=== PATIENT | female | born 1955 | race American Indian/Alaskan Native ===

== ENCOUNTER 2017-09-03 09:38 | Emergency (ER) | payer MEDICAID ==
[2017-09-03 09:39] VITALS: BMI 42.9
[2017-09-03 09:48] VITALS: TEMP 98.9
--- NOTE | 2017-09-03 10:21 | C.PDOC ---
History Of Present Illness 61yo female, with history of stage 4 lung cancer, comes to ER for evaluation of left upper arm pain radiating down her entire arm. She describes the pain as shooting and tingling in sesnation and states it has been ongoing for several months. Patient was recently admitted to [facility] weeks ago and had a CT study which showed progression of lung cancer. Patient was prescribed percocets by Dr. Mckeon for pain management but she reports no relief with the medication. Her last chemotherapy session was 1 week ago. Otherwise, she denies any fever, chills, chest pain, shortness of breath, weakness, numbness. No other complaints. Time Seen by Provider: 09/03/17 09:51 Chief Complaint (Nursing): Upper Extremity Problem/Injury History Per: Patient History/Exam Limitations: no limitations Onset/Duration Of Symptoms: Persistent Current Symptoms Are (Timing): Still Present Quality: "Pain" Additional History Per: Patient Past Medical History Reviewed: Historical Data, Nursing Documentation, Vital Signs Vital Signs: Last Vital Signs Temp 98.9 F 09/03/17 09:42 Pulse 78 09/03/17 10:52 Resp 16 09/03/17 10:52 BP 128/80 09/03/17 10:52 Pulse Ox 98 09/03/17 10:52 - Medical History PMH: Anxiety, Asthma, HTN, Malignancy (stage 4 lung ca) Surgical History: No Surg Hx - [facility] Procedures CLOSED ENDOSCOPIC BIOPSY OF LUNG (08/05/12) DESTROY LOC LUNG LES NEC (09/15/12) FIBER-OPTIC BRONCHOSCOPY (09/15/12) INSERT INTERCOSTAL CATH (09/15/12) LYMPHATIC STRUCT BIOPSY (09/15/12) Family History: States: No Known Family Hx - Social History Hx Alcohol Use: No Hx Substance Use: No Review Of Systems Constitutional: Negative for: Fever, Chills Cardiovascular: Negative for: Chest Pain Respiratory: Negative for: Shortness of Breath Musculoskeletal: Positive for: Arm Pain (left) Neurological: Negative for: Weakness, Numbness Physical Exam - Physical Exam Appears: Non-toxic, Other (moderate painful distress; +tearful) Skin: Warm, Dry Head: Atraumatic, Normacephalic Eye(s): bilateral: Normal Inspection Neck: Normal ROM, Supple Chest: Symmetrical Cardiovascular: Rhythm Regular Respiratory: Normal Breath Sounds Gastrointestinal/Abdominal: Normal Exam, Soft, No Tenderness Back: Normal Inspection Extremity: Normal ROM (FROM of left shoulder, elbow, wrist and all digits on left hand.), Tenderness (tenderness to palpation of lateral left upper arm. ), Capillary Refill (< 2 seconds), No Deformity, No Swelling, Other (distal sensations intact on left upper extremity) Neurological/Psych: Oriented x3, Normal Speech, Normal Cognition, Normal Motor, Normal Sensation ED Course And Treatment O2 Sat by Pulse Oximetry: 97 (RA) Pulse Ox Interpretation: Normal Progress Note: Patient given Morphine 6mg IM with relief of pain. Patient instructed to take medications as prescribed and to follow up with Dr. Mckeon without fail. - Physician Consult Information Physician Contacted: Fabrice Mckeon Outcome Of Conversation: Discussed patient with her oncologist Dr. Mckeon, patient has progression of her lung CA extending into left thorax/thoracic vertebrae. Recommends starting patient on oxycontin 10mg PO Q6, he has appt with her saturday for blood work, but patient can walk in to the office tomorrow after 2pm if needed. Medical Decision Making Medical Decision Making: [place] RX reviewed, no Rxs found for this patient. Disposition Counseled Patient/Family Regarding: Diagnosis, Need For Followup, Rx Given - Disposition Referrals: Fabrice Mckeon MD [Staff Provider] - Disposition: HOME/ ROUTINE Disposition Time: 10:30 Condition: STABLE Additional Instructions: FOLLOW UP WITH DR MCKEON SATURDAY SCHEDULED IF NEEDED GO TO DR MCKEON'S OFFICE TOMORROW AFTER 2PM RETURN TO ER IF SYMPTOMS WORSEN Prescriptions: Oxycodone HCl 10 mg PO Q6 PRN #20 tablet PRN Reason: pain Forms: [facility] (Bruneian) Print Language: HAITIAN - Clinical Impression Clinical Impression: Stage 4 lung cancer, Left arm pain - Scribe Statement The provider has reviewed the documentation as recorded by the Asia Gamez Provider Attestation: All medical record entries made by the Asia were at my direction and personally dictated by me. I have reviewed the chart and agree that the record accurately reflects my personal performance of the history, physical exam, medical decision making, and the department course for this patient. I have also personally directed, reviewed, and agree with the discharge instructions and disposition.
[2017-09-03] MEDS ORDERED: Morphine 4 MG/ML VIAL ONE (10:23)
[2017-09-03 10:53] VITALS: BP 128/80; PULSE 78; RESP 16
[2017-09-03 11:49] VITALS: O2SAT 97
== END 2017-09-03 10:52 | disposition home or self-care (01) ==
LOC: C.ER 09:38
DX: M79.602 Pain in left arm (principal); C34.90 Malignant neoplasm of unspecified part of unspecified bronchus or lung; Z87.891 Personal history of nicotine dependence
CPT/HCPCS: 96372; 99283; J2270

== ENCOUNTER 2017-11-08 09:53 | Emergency (ER) | payer MEDICAID ==
[2017-11-08 09:53] VITALS: BMI 42.9
[2017-11-08 10:01] VITALS: TEMP 98.7
--- NOTE | 2017-11-08 10:05 | C.PDOC ---
History Of Present Illness 61-year-old female, PMHx includes Anxiety, Asthma, Hypertension, Malignancy ( stage 4 lung CA), presents to the emergency department with complaints of diarrhea. Patient states she went to see her doctor a few days ago for constipation and was given Colace. States she took Colace everyday, after which she developed several episodes of non-bloody/watery diarrhea. Patient had four episodes yesterday and four this morning, prompting visit. She denies any recent antibiotic usage, recent travel abroad or dietary changes. Patient is currently on chemotherapy every Saturday, and states she is taking K-Chloride for low Potassium. She denies any fever, chills, chest pain, shortness of breath, dizziness, or any other associated symptoms. no other complaints at this time. PMD: Vaishali Blair MD. Oncologist: Fabrice Ibrahim MD. Time Seen by Provider: 11/08/17 10:05 Chief Complaint (Nursing): Abdominal Pain History Per: Patient, Family History/Exam Limitations: no limitations Onset/Duration Of Symptoms: Days Current Symptoms Are (Timing): Still Present Severity: Moderate Past Medical History Reviewed: Historical Data, Nursing Documentation, Vital Signs Vital Signs: Last Vital Signs Temp 98.7 F 11/08/17 09:59 Pulse 80 11/08/17 09:59 Resp 18 11/08/17 09:59 BP 96/68 L 11/08/17 09:59 Pulse Ox 97 11/08/17 11:42 - Medical History PMH: Anxiety, Asthma, HTN, Malignancy (stage 4 lung ca) Surgical History: Back Surgery - [facility] Procedures CLOSED ENDOSCOPIC BIOPSY OF LUNG (08/05/12) DESTROY LOC LUNG LES NEC (09/15/12) FIBER-OPTIC BRONCHOSCOPY (09/15/12) INSERT INTERCOSTAL CATH (09/15/12) LYMPHATIC STRUCT BIOPSY (09/15/12) Family History: States: No Known Family Hx - Social History Hx Alcohol Use: No Hx Substance Use: No Review Of Systems Constitutional: Negative for: Fever, Chills Eyes: Negative for: Pain ENT: Negative for: Ear Pain Cardiovascular: Negative for: Chest Pain Respiratory: Negative for: Shortness of Breath Gastrointestinal: Positive for: Abdominal Pain, Diarrhea. Negative for: Nausea , Vomiting, Constipation, Melena, Hematochezia, Hematemesis Genitourinary: Negative for: Dysuria, Frequency, Incontinence Musculoskeletal: Negative for: Neck Pain, Shoulder Pain Physical Exam - Physical Exam Appears: Non-toxic, No Acute Distress Skin: Normal Color, Warm, Dry, No Rash Head: Atraumatic Eye(s): bilateral: Normal Inspection Nose: Normal Oral Mucosa: Moist Lips: Normal Appearing Neck: Normal ROM Chest: Symmetrical Cardiovascular: Rhythm Regular, No Murmur Respiratory: Normal Breath Sounds, No Accessory Muscle Use Gastrointestinal/Abdominal: Soft, Tenderness (epigastric, LLQ.), No Guarding, No Rebound Extremity: Normal ROM, No Deformity Neurological/Psych: Oriented x3, Normal Speech ED Course And Treatment - Laboratory Results Result Diagrams: 11/08/17 10:45 11/08/17 10:45 O2 Sat by Pulse Oximetry: 97 Pulse Ox Interpretation: Normal (RA) Medical Decision Making Medical Decision Makin yr old female w/ hx of Lung ca, recent constipation resolved w/ colace p/w diarrhea after taking colace BID x3d. Pt notes that her constipation improved after taking colace, but that she has continued taking colace when she was supposed to stop and has been having painful BMs. She denies any chest pain, shortness of breath or any other complaints. PT recently had negative CT scan here 4d prior. Plan: * Bloodwork * IVF * Reassess and Disposition 1120 labs largely unremarkable, anemia seen previously 4d prior w/ hgb 8.5, w/ out dark or bloody stool 1139 REassessed: pt notes pain is now 7/10 from 10/10. Given recurrent pain will seek CT 1356 pain improved to 3/[address], likely diverticulitis given abd pain endorsed to pt findings and to follow up and d/c colace will give abx and d/c. Disposition - Disposition Disposition Time: 13:57 Condition: GOOD Forms: [facility] (Divehi) - Clinical Impression Clinical Impression: Diverticulitis - Scribe Statement The provider has reviewed the documentation as recorded by the Scribe (Liang Shin) Provider Attestation: All medical record entries made by the Scribe were at my direction and personally dictated by me. I have reviewed the chart and agree that the record accurately reflects my personal performance of the history, physical exam, medical decision making, and the department course for this patient. I have also personally directed, reviewed, and agree with the discharge instructions and disposition.
[2017-11-08] MEDS ORDERED: Sodium Chloride 0.9% 1,000 ML IV SCH (10:30)
[2017-11-08 10:47] LABS: BASO % 1.8 % (0.0-2.0); EOS # 0.1 K/uL (0.0-0.7); EOS % 2.3 % (0.0-4.0); HEMOGLOBIN 8.5 g/dL (11.0-16.0); LYMPH # 0.7 K/uL (1.0-4.3); LYMPH % 29.9 % (20.0-40.0); MEAN CELL VOLUME 81.4 fL (81.0-99.0); MEAN CORPUSCULAR HEMOGLOBIN 26.4 pg (27.0-31.0); MEAN CORPUSCULAR HGB CONC 32.4 g/dL (33.0-37.0); MONO # 0.1 K/uL (0.0-0.8); MONO % 3.2 % (0.0-10.0); NEUT # 1.4 K/uL (1.8-7.0); NEUT % 62.8 % (50.0-75.0); NRBC % 0.1 % (0.0-2.0); RBC 3.23 Mil/uL (3.80-5.20); RED CELL DISTRIBUTION WIDTH 20.2 % (11.5-14.5); WHITE BLOOD COUNT 2.3 K/uL (4.8-10.8)
[2017-11-08 10:59] LABS: VENOUS BLOOD GAS BASE EXCESS 3.8 mmol/L (0.0-2.0); VENOUS BLOOD GAS PCO2 46 mmHg (40-60); VENOUS BLOOD GAS PO2 30 mm/Hg (30-55); VENOUS BLOOD PH 7.41 (7.32-7.43)
[2017-11-08 11:06] LABS: ALB/GLOB RATIO 1.2 (1.0-2.1); ALBUMIN 3.5 g/dL (3.5-5.0); ALT/SGPT 23 U/L (9-52); AST/SGOT 17 U/L (14-36); BLOOD UREA NITROGEN 11 mg/dL (7-17); CALCIUM 8.3 mg/dl (8.6-10.4); GFR NON-AFRICAN AMERICAN > 60; LIPASE 16 U/L (23-300)
[2017-11-08] MEDS ORDERED: Sodium Chloride 0.9% 1,000 ML ONE (11:24)
[2017-11-08] MEDS ORDERED: Iodixanol 320 mg/ml 150 ml Bottle IV ONE (12:39)
--- NOTE | 2017-11-08 13:52 | CT ---
PROCEDURE: CT Abdomen and Pelvis without Oral or IV contrast. HISTORY: abd pain, epigastric, diarrhea, DM2, recurrent bertha COMPARISON: CT abdomen and pelvis with IV contrast performed 11/04/17 TECHNIQUE: Contiguous axial images of the abdomen and pelvis. No oral or IV contrast administered. Coronal and Sagittal reformats generated and reviewed. Radiation dose: Total exam DLP = 890.13 mGy-cm. This CT exam was performed using one or more of the following dose reduction techniques: Automated exposure control, adjustment of the mA and/or kV according to patient size, and/or use of iterative reconstruction technique. FINDINGS: There is limited evaluation of the solid organs without the administration of IV contrast. LOWER THORAX: No visible consolidation, pleural effusion, or pneumothorax. LIVER: Hepatomegaly. GALLBLADDER AND BILE DUCTS: Unremarkable unenhanced appearance. PANCREAS: Atrophic pancreas. Otherwise unremarkable unenhanced appearance. SPLEEN: 6 mm hypodensity seen noncontrast enhanced CT performed 11/04/17 cannot be appreciated on noncontrast study. ADRENALS: Unremarkable unenhanced appearance. KIDNEYS AND URETERS: No hydronephrosis or obstructing renal calculus. Right renal cyst. BLADDER: The urinary bladder appears unremarkable. REPRODUCTIVE: Hysterectomy. Cervical prominence and 2 radiopaque foci at the level of the cervix re-identified. APPENDIX: The appendix appears within normal limits of caliber. No secondary signs of acute appendicitis. BOWEL: The stomach is nondistended. Lack of oral contrast limits evaluation for bowel pathology. The bowel loops appear within normal limits of caliber without evidence of intestinal obstruction. Moderate diverticulosis particularly involving the sigmoid colon with questionable wall thickening of the colon, possibly exaggerated by lack of distention. Correlate clinically for possibility of acute diverticulitis. No significant adjacent inflammatory changes evident. PERITONEUM: No significant free fluid. No definite free air. LYMPH NODES: No bulky lymphadenopathy identified. VASCULATURE: Atherosclerotic calcifications. No aortic aneurysm. BONES: Degenerative changes. Anterolisthesis of L4 on L5 approximately 8 mm. OTHER FINDINGS: None. IMPRESSION: Moderate diverticulosis particularly involving the sigmoid colon with questionable wall thickening of the colon, possibly exaggerated by lack of distention. Correlate clinically for possibility of acute diverticulitis. No significant adjacent inflammatory changes evident. Additional findings as above.
[2017-11-08 14:20] VITALS: BP 101/69; PULSE 85; RESP 16; O2SAT 98
== END 2017-11-08 14:19 | disposition home or self-care (01) ==
LOC: C.ER 09:53
DX: K57.32 Diverticulitis of large intestine without perforation or abscess without bleeding (principal)
CPT/HCPCS: 74176; 80053; 82803; 83690; 83735; 85025; 96374; 99284; J7030

== ENCOUNTER 2017-11-09 13:56 | Inpatient (IN) | payer MEDICAID ==
[2017-11-09 14:02] VITALS: BMI 45.3
[2017-11-09] MEDS ORDERED: Sodium Chloride 0.9% 1,000 ML IV SCH (14:30)
[2017-11-09 14:58] LABS: BASO % 1.8 % (0.0-2.0); EOS # 0.1 K/uL (0.0-0.7); EOS % 3.8 % (0.0-4.0); HEMOGLOBIN 8.4 g/dL (11.0-16.0); LYMPH # 0.8 K/uL (1.0-4.3); LYMPH % 35.4 % (20.0-40.0); MEAN CELL VOLUME 81.5 fL (81.0-99.0); MEAN CORPUSCULAR HEMOGLOBIN 26.5 pg (27.0-31.0); MEAN CORPUSCULAR HGB CONC 32.6 g/dL (33.0-37.0); MEAN PLATELET VOLUME 9.6 fL (7.2-11.7); MONO # 0.1 K/uL (0.0-0.8); MONO % 5.2 % (0.0-10.0); NEUT # 1.2 K/uL (1.8-7.0); NEUT % 53.8 % (50.0-75.0); RBC 3.17 Mil/uL (3.80-5.20); RED CELL DISTRIBUTION WIDTH 20.4 % (11.5-14.5); WHITE BLOOD COUNT 2.3 K/uL (4.8-10.8)
[2017-11-09] MEDS ORDERED: Sodium Chloride 0.9% 1,000 ML ONE (14:58)
[2017-11-09 15:26] LABS: ALB/GLOB RATIO 1.2 (1.0-2.1); ALBUMIN 3.4 g/dL (3.5-5.0); ALT/SGPT 24 U/L (9-52); AST/SGOT 17 U/L (14-36); BLOOD UREA NITROGEN 9 mg/dL (7-17); CALCIUM 8.5 mg/dl (8.6-10.4); GFR NON-AFRICAN AMERICAN > 60; LIPASE 27 U/L (23-300)
[2017-11-09] MEDS ORDERED: Potassium Chloride 20 mEq ER Tab PO STA (15:34)
[2017-11-09] MEDS ORDERED: Potassium Chloride 20 mEq ER Tab PO ONE (15:50)
[2017-11-09 17:57] LABS: SQUAMOUS EPITHIAL 21 /hpf (0-5); URINE BACTERIA RARE (<OCC); URINE BILIRUBIN NEGATIVE (NEGATIVE); URINE BLOOD NEGATIVE (NEGATIVE); URINE CLARITY Hazy (Clear); URINE COLOR Yellow (YELLOW); URINE GLUCOSE (UA) NORMAL (Normal); URINE LEUKOCYTE ESTERASE 1+ Leu/uL (Negative); URINE PROTEIN NEGATIVE (NEGATIVE)
--- NOTE | 2017-11-09 18:05 | C.PDOC ---
History Of Present Illness 61 year old female patient presents to the ER with c/o weakness and mild lower abdominal pain. Associated symptom include 1 episode of vomiting. Patient denies fever and chills. Patient was seen yesterday, received a CT scan which showed diverticulosis. Time Seen by Provider: 11/09/17 14:10 Chief Complaint (Nursing): GI Problem History Per: Patient History/Exam Limitations: no limitations Onset/Duration Of Symptoms: Days Current Symptoms Are (Timing): Still Present Past Medical History Reviewed: Historical Data, Nursing Documentation, Vital Signs Vital Signs: Last Vital Signs Temp 97.8 F 11/09/17 20:12 Pulse 85 11/09/17 20:12 Resp 16 11/09/17 20:12 BP 100/70 11/09/17 20:12 Pulse Ox 96 11/09/17 20:12 - Medical History PMH: Anxiety, Asthma, HTN, Malignancy (stage 4 lung ca) Surgical History: Back Surgery - [facility] Procedures CLOSED ENDOSCOPIC BIOPSY OF LUNG (08/05/12) DESTROY LOC LUNG LES NEC (09/15/12) FIBER-OPTIC BRONCHOSCOPY (09/15/12) INSERT INTERCOSTAL CATH (09/15/12) LYMPHATIC STRUCT BIOPSY (09/15/12) Family History: States: Unknown Family Hx - Social History Hx Alcohol Use: No Hx Substance Use: No - Immunization History Hx Tetanus Toxoid Vaccination: No Hx Influenza Vaccination: No Hx Pneumococcal Vaccination: No Review Of Systems Except As Marked, All Systems Reviewed And Found Negative. Constitutional: Negative for: Fever, Chills Gastrointestinal: Positive for: Vomiting, Abdominal Pain (low) Neurological: Positive for: Weakness Physical Exam - Physical Exam Appears: Well, Non-toxic, No Acute Distress Skin: Normal Color, Warm, Dry Head: Atraumatic, Normacephalic Eye(s): bilateral: Normal Inspection, EOMI Oral Mucosa: Dry Throat: Normal Neck: Normal ROM, Supple Chest: Symmetrical, No Deformity Cardiovascular: Rhythm Regular Respiratory: Normal Breath Sounds Gastrointestinal/Abdominal: Soft, Tenderness (mild lower abdominal tenderness ) Back: No CVA Tenderness Extremity: Normal ROM (x4) Neurological/Psych: Oriented x3, Normal Speech ED Course And Treatment - Laboratory Results Result Diagrams: 11/09/17 14:54 11/09/17 14:54 O2 Sat by Pulse Oximetry: 99 (RA) Pulse Ox Interpretation: Normal Medical Decision Making Medical Decision Making: Impression: weakness and mild lower abdominal pain Plans: -- blood work -- potassium chloride -- IV fluids -- Toradol -- UA Reassess: Patient is resting comfortably. Tolerating PO. Case was discussed with Dr. Blair and patient will be admitted under his care. Disposition - Disposition Disposition: HOSPITALIZED Disposition Time: 16:00 Condition: STABLE - Clinical Impression Clinical Impression: Abdominal pain, Hypokalemia, Dehydration - Scribe Statement The provider has reviewed the documentation as recorded by the Asia Head Do Provider Attestation: All medical record entries made by the Guilleibe were at my direction and personally dictated by me. I have reviewed the chart and agree that the record accurately reflects my personal performance of the history, physical exam, medical decision making, and the department course for this patient. I have also personally directed, reviewed, and agree with the discharge instructions and disposition.
[2017-11-09] MEDS ORDERED: Albuterol HFA 90 mcg/actuation (8 g) IH PRN (19:52)
[2017-11-09] MEDS ORDERED: Oxycodone/Acetaminophen 5/325 mg Tab ONE (20:11)
[2017-11-09] MEDS: Oxycodone/Acetaminophen 5/325 mg Tab PO PRN (20:12)
[2017-11-09] MEDS: Potassium Ch 20mEq in D5-1/2NS 1,000 ML IV SCH (20:33)
[2017-11-09] MEDS: metroNIDAZOLE IV 500 mg/100 ml 500 MG/100 ML BAG IVPB SCH (21:10)
[2017-11-09] MEDS: Ciprofloxacin 400mg/200ml D5W 400 MG/200 ML BAG IVPB SCH (22:08)
[2017-11-10] MEDS: Oxycodone/Acetaminophen 5/325 mg Tab PO PRN ×3 (02:32→20:51)
[2017-11-10] MEDS: metroNIDAZOLE IV 500 mg/100 ml 500 MG/100 ML BAG IVPB SCH ×3 (05:13→20:57)
[2017-11-10] MEDS: Potassium Ch 20mEq in D5-1/2NS 1,000 ML IV SCH ×2 (06:47→18:14)
[2017-11-10] MEDS: Enoxaparin 40 mg Syringe SC SCH (09:42)
[2017-11-10] MEDS: Ciprofloxacin 400mg/200ml D5W 400 MG/200 ML BAG IVPB SCH ×2 (09:43→22:41)
[2017-11-10] MEDS ORDERED: Potassium Chloride 20 mEq ER Tab PO SCH (10:00)
[2017-11-10 10:47] LABS: EOS # 0.1 K/uL (0.0-0.7); LYMPH # 0.5 K/uL (1.0-4.3); MONO # 0.1 K/uL (0.0-0.8)
[2017-11-10 10:52] LABS: BASO # 0.1 K/uL (0.0-0.2); BASO % 2.8 % (0.0-2.0); EOS % 4.4 % (0.0-4.0); HEMOGLOBIN 7.6 g/dL (11.0-16.0); LYMPH % 24.4 % (20.0-40.0); MEAN CORPUSCULAR HEMOGLOBIN 26.3 pg (27.0-31.0); MEAN CORPUSCULAR HGB CONC 32.1 g/dL (33.0-37.0); MEAN PLATELET VOLUME 10.4 fL (7.2-11.7); MONO % 4.5 % (0.0-10.0); NEUT # 1.2 K/uL (1.8-7.0); NEUT % 63.9 % (50.0-75.0); NRBC % 0.5 % (0.0-2.0); RBC 2.91 Mil/uL (3.80-5.20); RED CELL DISTRIBUTION WIDTH 20.3 % (11.5-14.5)
[2017-11-10 10:56] LABS: WHITE BLOOD COUNT 1.9 K/uL (4.8-10.8)
[2017-11-10 10:59] LABS: ALBUMIN 2.9 g/dL (3.5-5.0); ALT/SGPT 22 U/L (9-52); AST/SGOT 15 U/L (14-36); BLOOD UREA NITROGEN 9 mg/dL (7-17); CALCIUM 7.8 mg/dl (8.6-10.4); GFR NON-AFRICAN AMERICAN > 60
--- NOTE | 2017-11-10 14:40 | PN ---
DATE: 11/10/2017 LOCATION: 670, bed B. SUBJECTIVE: This is a 61-year-old female seen and examined initially for GI consultation on 11/09/[address] Blair, reexamined again today with less abdominal pain, possible dyspepsia, with generalized weakness and malaise, but no reported active bleeding despite her low hemoglobin and hematocrit, still complaining of generalized fatigue. PHYSICAL EXAMINATION: GENERAL: A 61-year-old female who appeared to be more awake, alert, and oriented, but still complaining of nausea and dyspepsia. VITAL SIGNS: Afebrile, with pulse of 74, respiratory rate 20-22, blood pressure 100/60. HEENT: Showed pale, dry oral mucous membranes. Nonicteric sclerae. LUNGS: Few scattered crepitations. Decreased air entry at bases. HEART: Positive S1 and S2. ABDOMEN: Soft. Bowel sounds are present with mild generalized tenderness. No mass or organomegaly. No rebound tenderness or guarding. RECTAL: The patient refused. EXTREMITIES: Without edema, clubbing, or cyanosis. NEUROLOGIC: No new reported neurological deficits and no new reported focal deficits. It has to be mentioned that today's blood glucose level is 143 and the patient had low hemoglobin and hematocrit as well as low indices highly suggestive of hypochromic microcytic anemia. IMPRESSION: 1. Reexacerbation of peptic ulcer disease. 2. To rule out upper versus lower gastrointestinal blood loss. 3. Known history of poorly controlled diabetes mellitus. 4. Antireflux measures. 5. Further recommendations to follow and abdominal ultrasound as well as serum lipase and amylase level to be ordered. Montse Kaiser MD
[2017-11-11] MEDS: metroNIDAZOLE IV 500 mg/100 ml 500 MG/100 ML BAG IVPB SCH (05:10)
--- NOTE | 2017-11-11 07:50 | CP.PCM.PN ---
Subjective - Date & Time of Evaluation Date of Evaluation: 11/11/17 Time of Evaluation: 07:47 - Subjective Subjective: PGY3 progress note for Dr. Blair 61 year old female with past medical history of HTN, DM, stage 4 lung cancer presented to hospital for vomiting and lower abdominal pain. CT done the day before admission showed diverticulosis in sigmoid colon. Pt underwent EGD this am with Dr. Herbert. Pt is seen and examined this morning after EGD. No acute events overnight. Pt resting comfortably, a bit anxious about her appointment scheduled for today outpt with Dr. Ibrahim for chemo. Patient states abd pain has improved significantly. Denies having any CP, SOB, N/V/D/C, F/C. Objective - Vital Signs/Intake and Output Vital Signs (last 24 hours): Temp Pulse Resp BP Pulse Ox 98.4 F 78 20 98/64 L 94 L 11/11/17 04:45 11/11/17 04:45 11/11/17 04:45 11/11/17 04:45 11/10/17 23:40 Intake and Output: 11/11/17 11/11/17 06:59 18:59 Intake Total 1475 Output Total 0 Balance 1475 - Medications Medications: Current Medications Albuterol (Ventolin Hfa 90 Mcg/Actuation (8 G)) 90 puff IH PRN PRN PRN Reason: Shortness of Breath Alprazolam (Xanax) 0.25 mg PO DAILY REPLACED BY [facility] Stop: 11/17/17 10:01 Last Admin: 11/10/17 09:42 Dose: 0.25 mg Dextrose (Dextrose 50% Inj) 0 ml IV STAT PRN; Protocol PRN Reason: Hypoglycemia Protocol Dextrose (Glutose 15) 0 gm PO ONCE PRN; Protocol PRN Reason: Hypoglycemia Protocol Docusate Sodium (Colace) 100 mg PO BID REPLACED BY [facility] Last Admin: 11/10/17 18:14 Dose: 100 mg Enoxaparin Sodium (Lovenox) 40 mg SC DAILY REPLACED BY [facility] Last Admin: 11/10/17 09:42 Dose: 40 mg Glucagon (Glucagen Diagnostic Kit) 0 mg IM STAT PRN; Protocol PRN Reason: Hypoglycemia Protocol Ciprofloxacin (Cipro 400mg/200ml Dsw) 400 mg in 200 mls @ 133 mls/hr IVPB Q12H KINJAL PRN Reason: Protocol Last Admin: 11/10/17 22:41 Dose: 133 mls/hr Metronidazole (Flagyl) 500 mg in 100 mls @ 100 mls/hr IVPB Q8H REPLACED BY [facility] PRN Reason: Protocol Last Admin: 11/11/17 05:10 Dose: 100 mls/hr Potassium Chloride/Dextrose/Sod Cl (Potassium Chl 20 Meq In D5-1/2ns) 1,000 mls @ 100 mls/hr IV .Q10H REPLACED BY [facility] Last Admin: 11/10/17 18:14 Dose: 100 mls/hr Dextrose (Dextrose 5% In Water 1000 Ml) 1,000 mls @ 0 mls/hr IV .Q0M PRN; Protocol; Per Protocol PRN Reason: Hypoglycemia Protocol Metformin HCl (Glucophage) 1,000 mg PO BIDCC REPLACED BY [facility] Last Admin: 11/10/17 18:14 Dose: 1,000 mg Oxycodone/Acetaminophen (Percocet 5/325 Mg Tab) 1 tab PO Q4H PRN PRN Reason: Pain, moderate (4-7) Stop: 11/12/17 20:00 Last Admin: 11/10/17 20:51 Dose: 1 tab Potassium Chloride (K-Dur 20 Meq Er Tab) 20 meq PO DAILY REPLACED BY [facility] Last Admin: 11/10/17 09:42 Dose: 20 meq - Labs Labs: 11/10/17 10:43 11/10/17 10:43 - Constitutional Appears: Non-toxic, No Acute Distress - Head Exam Head Exam: ATRAUMATIC, NORMOCEPHALIC - ENT Exam ENT Exam: Mucous Membranes Moist - Respiratory Exam Respiratory Exam: Clear to Ausculation Bilateral. absent: Rales, Rhonchi, Wheezes - Cardiovascular Exam Cardiovascular Exam: REGULAR RHYTHM, +S1, +S2 - GI/Abdominal Exam GI & Abdominal Exam: Soft, Normal Bowel Sounds. absent: Distended, Firm, Guarding, Rigid, Organomegaly - Extremities Exam Extremities Exam: absent: Pedal Edema, Tenderness - Neurological Exam Neurological Exam: Alert, Awake - Psychiatric Exam Psychiatric exam: Normal Affect, Normal Mood. absent: Anxious, Depressed - Skin Skin Exam: Dry, Intact, Normal Color, Warm Assessment and Plan - Assessment and Plan (Free Text) Assessment: 61 year old female with pats medical history of HTN, DM, stage 4 lung cancer on chemo weekly, asthma is admitted for diverticulosis Diverticulosis CT of abdomen/pelvis done on 11/08/17 without contrast showed diverticulosis in sigmoid colon with questionable wall thickening Continue cipro and flagyl pain management with percocet 5/325 1 tab po q4 Continue D5/.45 NS with KCl at 100 cc GI, Dr. Herbert is consulted. Pt taken for EGD this am Anemia Likely 2/2 chemo therapy Pt denies having any blood stool or melena Pt received 1 unit of PRBC overnight Hgb 8.7 this am Will check stool occult Leukopenia Likely 2/2 chemotherapy stable WBC count this am HTN Currently hypotensive. Will continue to monitor hx of Hypokalemia Currently on D5/.45 NS with KCl 20 meq. will continue to monitor DM Accucheck ACHS ISS low dose Continue home metformin hypoglycemic protocol Metastatic lung cancer Patient to follow up with Dr. Jaydon Ibrahim to resume chemotherapy Percocet 5/325 1 tab PO Q4 prn pain Asthma Controlled Ventolin prn Prophylactic Measures Protonix 40mg IVP daily Lovenox 40mg SC daily All management and orders per Dr. Blair. Patient is stable for discharge per Dr. Blair Patient is to follow up with PMD, Dr. Blair upon discharge. Patient is to follow up with Oncologist, Dr. Ibrahim upon discharge. Patient is to follow up with GI, Dr. Herbert upon discharge. Referral provided for patient. Patient is to continue home medications as prescribed. She is also discharged with sucralfate 1 gram po 4 times per day for 8 weeks. Please return to ED if symptoms return.
[2017-11-11 07:55] LABS: HEMOGLOBIN 8.7 g/dL (11.0-16.0); MEAN CELL VOLUME 82.5 fL (81.0-99.0); MEAN CORPUSCULAR HEMOGLOBIN 26.7 pg (27.0-31.0); MEAN CORPUSCULAR HGB CONC 32.4 g/dL (33.0-37.0); RBC 3.28 Mil/uL (3.80-5.20); RED CELL DISTRIBUTION WIDTH 19.2 % (11.5-14.5); WHITE BLOOD COUNT 2.2 K/uL (4.8-10.8)
[2017-11-11 08:08] LABS: ALBUMIN 2.9 g/dL (3.5-5.0); ALT/SGPT 19 U/L (9-52); AST/SGOT 17 U/L (14-36); BLOOD UREA NITROGEN 5 mg/dL (7-17); CALCIUM 7.6 mg/dl (8.6-10.4); GFR NON-AFRICAN AMERICAN > 60
[2017-11-11] MEDS ORDERED: Propofol 10 mg/ml Inj (20 ML) ONE (08:08)
[2017-11-11] MEDS ORDERED: Lidocaine Hydrochloride 5 ML INJ ONE (08:08)
[2017-11-11 08:32] VITALS: TEMP 98.9
[2017-11-11 08:58] VITALS: BP 95/65; PULSE 78; RESP 80; O2SAT 100
[2017-11-11] MEDS ORDERED: Glucagon Recombinant 1 mg Inj IM ONE (09:00)
[2017-11-11] MEDS ORDERED: Dextrose 50% SYRINGE Inj (50 ml) IV ONE (09:00)
--- NOTE | 2017-11-11 09:07 | CON ---
DATE: 11/09/2017 LOCATION: 670, bed BGinger Cardenas was called for GI consultation by the admitting medical team. The patient is seen and fully examined on 11/09/2017 as requested by the admitting medical staff. The entire chart is reviewed including but not limited to the most recent lab and radiology study results, current and the previous medication list, current and the previous medical events. Case discussed with the staff in the floor as well as all the operational risk consultant at length. HISTORY OF PRESENT ILLNESS: This is a 61-year-old female complaining of generalized weakness and malaise, abdominal pain, nausea, vomiting, and dyspepsia with recently done CAT scan of the abdomen and pelvis, indicative of diverticulosis with questionable inflammatory changes. No reported active bleeding, chest pain, or significant shortness of breath but persistent dyspepsia. The patient also reported recent change of bowel movement habit. PAST MEDICAL HISTORY: Including but not limited to COPD; lung CA, on chemotherapy; hypertension; severe anxiety syndrome, peptic ulcer disease, known history of back surgery. FAMILY HISTORY: Unknown. SOCIAL HISTORY: Denied any recent history of cigarette smoking or alcohol intake. CURRENT MEDICATIONS: Post admission medication lists were reviewed. ALLERGY TO MEDICATION: UNCLEAR. LABORATORY DATA: Post admission lab results showed normal platelet count, but low hemoglobin of 8.4, hematocrit 25.8 with white blood cells 2.3, potassium 3.1, creatinine of 0.6. Blood glucose level 121. PHYSICAL EXAMINATION: GENERAL: A 61-year-old female; appeared to be awake, alert, oriented, somewhat restless and anxious. VITAL SIGNS: Afebrile with pulse of 82, respiratory rate 18 to 20, blood pressure of 102/74. HEENT: Showed pale dry mucoid membrane. Nonicteric sclerae. LUNGS: Few scattered crepitation. Decreased air entry at bases. HEART: Positive S1 and S2. ABDOMEN: Soft. Bowel sounds are present with mild generalized tenderness and slight distention. No mass or organomegaly. No rebound tenderness or guarding. RECTAL: The patient refused. EXTREMITIES: Shows mild lower extremity edematous changes. No clubbing or cyanosis. NEUROLOGIC: No reported new neurological deficits, sensory or motor. IMPRESSION: 1. Re-exacerbation of peptic ulcer disease with subsequent drop of hemoglobin and hematocrit, to rule out gastric versus duodenal ulcer. 2. Rule out occult gastrointestinal malignancy. 3. Known history of but not limited to lung cancer, hypertension, bronchial asthma, severe anxiety syndrome. 4. Electrolyte imbalance with hypokalemia that could be all secondary to chemotherapy induced also. SUGGESTIONS: 1. Agree with your plan. 2. Cancer markers including CEA. 3. Antireflux measure. Proton pump inhibitors. 4. Endoscopic evaluation of the GI tract when the patient is more stable clinically. Further recommendation to follow. Thank you for letting me participate in your patient's case management. Montse Kaiser MD
[2017-11-11] MEDS: Ciprofloxacin 400mg/200ml D5W 400 MG/200 ML BAG IVPB SCH (10:04)
[2017-11-11] MEDS: Enoxaparin 40 mg Syringe SC SCH (10:05)
[2017-11-11] MEDS ORDERED: (Novolin R) Insulin Human Regular 100 units/ml vial SC SCH (11:30)
[2017-11-11] MEDS ORDERED: Albuterol HFA 90 mcg/actuation (8 g) IH PRN (12:00)
[2017-11-11] MEDS ORDERED: Peg-Electrolyte Oral Soln 4L (Golytely) PO ONE (13:00)
== END 2017-11-11 11:42 | disposition home or self-care (01) | DRG 182 ==
LOC: C.ER 13:56 → C.9E 17:02 → C.6T 22:49
PROVIDERS: ADMIT Internal Medicine Pulmonary Disease; ATTEND Internal Medicine Pulmonary Disease
PROC: 0DB68ZX Excision of Stomach, Via Natural or Artificial Opening Endoscopic, Diagnostic (ICD-10-PCS; principal; 2017-11-11 08:10)
DX: K57.30 Diverticulosis of large intestine without perforation or abscess without bleeding (principal); E87.6 Hypokalemia; C34.90 Malignant neoplasm of unspecified part of unspecified bronchus or lung; E86.0 Dehydration; K21.0 Gastro-esophageal reflux disease with esophagitis; K29.50 Unspecified chronic gastritis without bleeding; K44.9 Diaphragmatic hernia without obstruction or gangrene; D72.819 Decreased white blood cell count, unspecified; D64.9 Anemia, unspecified; E11.9 Type 2 diabetes mellitus without complications; I10 Essential (primary) hypertension; J45.909 Unspecified asthma, uncomplicated; Z79.84 Long term (current) use of oral hypoglycemic drugs

== ENCOUNTER 2017-12-19 10:09 | Emergency (ER) | payer MEDICAID ==
[2017-12-19 10:09] VITALS: BMI 42.9
[2017-12-19 10:41] VITALS: O2SAT 98
[2017-12-19] MEDS ORDERED: Sodium Chloride 0.9% 1,000 ML IV ONE (11:11)
[2017-12-19 11:54] LABS: BASO # 0.1 K/uL (0.0-0.2); BASO % 2.9 % (0.0-2.0); EOS % 1.3 % (0.0-4.0); HEMOGLOBIN 10.2 g/dL (11.0-16.0); LYMPH % 34.3 % (20.0-40.0); MEAN CELL VOLUME 81.9 fL (81.0-99.0); MEAN CORPUSCULAR HEMOGLOBIN 26.5 pg (27.0-31.0); MEAN CORPUSCULAR HGB CONC 32.4 g/dL (33.0-37.0); MEAN PLATELET VOLUME 10.9 fL (7.2-11.7); MONO # 0.4 K/uL (0.0-0.8); NEUT # 1.4 K/uL (1.8-7.0); NEUT % 48.5 % (50.0-75.0); NRBC % 0.5 % (0.0-2.0); RBC 3.85 Mil/uL (3.80-5.20); RED CELL DISTRIBUTION WIDTH 20.1 % (11.5-14.5)
[2017-12-19] MEDS ORDERED: Sodium Chloride 0.9% 1,000 ML ONE (11:58)
--- NOTE | 2017-12-19 12:04 | C.PDOC ---
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 Patient admits to recently multiple frequent falls for weeks. Otherwise, pt denies loc, syncope, headache, dizziness, neck pian, chest pain, sob, dyspnea, wheezing, abd. pain, nausea, vomiting, denies obvious deformity, weakness, sensory or vascular deficits to B/L UEs and LEs. At the time of evaluation, appears comfortable, not in any apparent distress. Time Seen by Provider: 12/19/17 10:29 Chief Complaint (Nursing): Lower Extremity Problem/Injury History Per: Patient History/Exam Limitations: no limitations Onset/Duration Of Symptoms: Hrs Current Symptoms Are (Timing): Still Present Past Medical History Reviewed: Historical Data, Nursing Documentation, Vital Signs Vital Signs: Last Vital Signs Temp 98.5 F 12/19/17 10:36 Pulse 85 12/19/17 10:36 Resp 18 12/19/17 10:36 BP 93/61 L 12/19/17 10:50 Pulse Ox 98 12/19/17 10:36 - Medical History PMH: Anxiety, Asthma, HTN, Malignancy (stage 4 lung ca) Surgical History: Back Surgery - [facility] Procedures CLOSED ENDOSCOPIC BIOPSY OF LUNG (08/05/12) DESTROY LOC LUNG LES NEC (09/15/12) EXCISION OF STOMACH, ENDO, DIAGN (11/09/17) FIBER-OPTIC BRONCHOSCOPY (09/15/12) INSERT INTERCOSTAL CATH (09/15/12) LYMPHATIC STRUCT BIOPSY (09/15/12) Family History: States: No Known Family Hx - Social History Hx Alcohol Use: No Hx Substance Use: No - Immunization History Hx Tetanus Toxoid Vaccination: No Hx Influenza Vaccination: No Hx Pneumococcal Vaccination: No Review Of Systems Cardiovascular: Negative for: Chest Pain Respiratory: Negative for: Shortness of Breath Musculoskeletal: Positive for: Other (hip pain). Negative for: Neck Pain, Shoulder Pain, Back Pain Neurological: Negative for: Weakness, Numbness, Headache, Dizziness Physical Exam - Physical Exam Appears: Well, Non-toxic, No Acute Distress Skin: Warm, Dry, No Rash, No Ecchymosis Head: Atraumatic, Normacephalic Eye(s): bilateral: PERRL Nose: No Flaring, No Discharge, No Deformity, No Tenderness Oral Mucosa: Moist Throat: No Drooling Neck: Normal ROM, Trachea Midline, No Midline Cervical Tenderness, No Paracervical Tenderness, No Step Off Deformity, Supple Chest: Symmetrical, No Deformity, No Tenderness Cardiovascular: Rhythm Regular, No Murmur, No JVD Respiratory: No Decreased Breath Sounds, No Accessory Muscle Use, No Rales, No Rhonchi, No Stridor, No Wheezing Gastrointestinal/Abdominal: Soft, No Tenderness, No Guarding, No Rebound Back: No Vertebral Tenderness, No Paraspinal Tenderness Extremity: Normal ROM (B/L UEs and LEs), Tenderness (mild over Left hip area, no deformity, no leg shortening.), No Pedal Edema, No Calf Tenderness, Capillary Refill (<2 seconds), No Deformity, No Swelling Extremity: Bilateral: Atraumatic Neurological/Psych: Oriented x3, Normal Speech, Normal Cognition, Normal Motor, Normal Sensation, Normal Reflexes ED Course And Treatment - Laboratory Results Result Diagrams: 12/19/17 11:44 12/19/17 12:56 Lab Interpretation: No Changes Compared To Prior Results ECG: Interpreted By Me, Viewed By Me ECG Rhythm: Sinus Rhythm Interpretation Of ECG: SR@73/min, NAD, no acute T wave or ST-T changes O2 Sat by Pulse Oximetry: 98 (RA) Pulse Ox Interpretation: Normal - Other Rad Pelvis with Left hip X-Ray: Interpreted by Me, Viewed By Me, Read By Radiologist Interpretation: (-) acute fx or disloctaion, (+) DJD Progress Note: Pt was OBS in ED for 3 hours and remained stable. On re-eval, pt is afebrile, hemodynamicaly stable. Non-toxic. Ambulatory in ED with baseline gait w/assiatnce of walker. PulsEOx 98% RA. Head: AT/NC. Neck: SUpple, (-) midline tenderness. Lungs: CTA B/L, BS equal B/L. CVS: (+)S1S2. Abd: benign. Neurologicaly intact. FAROM of B/L UEs and LEs. Blood work review and appears baseline, no acute changes. Imagings- no acute fx or dislocation. case discussed, results review with and discharge recommend. Results review and discussed with pt and family member, ref. to F/u with PMD, Ortho in 2-3 days for re-eval. return to Ed if any worsening or new changes Disposition Counseled Patient/Family Regarding: Studies Performed, Diagnosis, Need For Followup - Disposition Referrals: Fabrice Ibrahim MD [Staff Provider] - Erwin Gonsales MD [Staff Provider] - Disposition: HOME/ ROUTINE Disposition Time: 13:03 Condition: STABLE Additional Instructions: LIght duty, avoid waling Ice to join area Follow up with PMD, orthopedist in 2-3 days for re-evaluation. return to ED if any worsening or new changes. Instructions: Hip Pain Forms: [employer] (Croatian) - Clinical Impression Clinical Impression: Contusion, hip, Fall, Lung cancer - PA / DIRECTOR SALES / Resident Statement MD/DO has reviewed & agrees with the documentation as recorded. - Scribe Statement The provider has reviewed the documentation as recorded by the Guilleibmanju Vinson All medical record entries made by the Guilleibmanju were at my direction and personally dictated by me. I have reviewed the chart and agree that the record accurately reflects my personal performance of the history, physical exam, medical decision making, and the department course for this patient. I have also personally directed, reviewed, and agree with the discharge instructions and disposition.
--- NOTE | 2017-12-19 12:15 | RAD ---
Date of service: 12/19/2017 PROCEDURE: HISTORY: injury COMPARISON: 11/04/2017 TECHNIQUE: AP pelvis and frog's leg view. FINDINGS: Right lateral L4-5 prominent spondylosis. Bilateral facet hypertrophic arthrosis. Bilateral superolateral hip joint space narrowing. No fracture or lytic lesions. Bilateral full corticated ossifications/calcifications border inferior ischial tuberosities.-similar Left SI joint sclerotic arthrosis IMPRESSION: No fracture or lytic lesion. Multifocal degenerative changes as above. No interval pathology appreciated
[2017-12-19 13:14] LABS: ALB/GLOB RATIO 1.1 (1.0-2.1); ALBUMIN 3.2 g/dL (3.5-5.0); ALT/SGPT 19 U/L (9-52); AST/SGOT 18 U/L (14-36); BLOOD UREA NITROGEN 13 mg/dL (7-17); CALCIUM 8.4 mg/dl (8.6-10.4); GFR NON-AFRICAN AMERICAN > 60
[2017-12-19 13:17] LABS: INR 1.2; PROTHROMBIN TIME 12.7 SECONDS (9.7-12.2)
[2017-12-19] MEDS ORDERED: Potassium Chloride 20 mEq ER Tab PO STA (13:21)
[2017-12-19] MEDS ORDERED: Potassium Chloride 20 mEq ER Tab PO ONE (13:39)
[2017-12-19 14:09] VITALS: BP 100/75; PULSE 88; RESP 16; TEMP 97.6
--- NOTE | 2017-12-23 17:57 | CARD ---
APPROVED REPORT Date of service: 12/19/2017 EKG Measurement Heart [id number] NM [id number] <Conclusion> Normal sinus rhythm Nonspecific T wave abnormality Borderline low voltage Abnormal ECG
== END 2017-12-19 14:34 | disposition home or self-care (01) ==
LOC: C.ER 10:09
DX: S70.02XA Contusion of left hip, initial encounter (principal); V48.4XXA Person boarding or alighting a car injured in noncollision transport accident, initial encounter; C34.90 Malignant neoplasm of unspecified part of unspecified bronchus or lung
CPT/HCPCS: 73502; 80053; 82550; 82948; 84484; 85025; 85610; 85730; 93005; 96360; 99285; J7030

== ENCOUNTER 2018-01-05 13:21 | Emergency (ER) | payer MEDICAID ==
[2018-01-05 13:21] VITALS: BMI 42.9
[2018-01-05] MEDS ORDERED: MethylPREDNISolone 40 mg Vial IVP STA (14:22)
[2018-01-05] MEDS ORDERED: Albuterol-Ipratrop 3 mg / 0.5 (3 ml) UD INH STA (14:22)
[2018-01-05] MEDS ORDERED: Albuterol 0.083% Inhal Sol (2.5 mg/3 mL) UD IH STA (14:22)
--- NOTE | 2018-01-05 15:18 | RAD ---
Date of service: 01/05/2018 PROCEDURE: Radiographs of the chest and abdomen (obstructive series) HISTORY: constipation, diarrhea COMPARISON: Comparison made with chest radiograph 02/08/2016. Comparison made with CT scan abdomen pelvis 11/08/2017. TECHNIQUE: AP radiograph of the chest, with upright and supine radiographs of the abdomen. FINDINGS: CHEST: Lungs: Questionable chronic interstitial changes versus interstitial infiltrates right and to a lesser degree left upper lung jacques.. Metallic clips left suprahilar region again seen Cardiovascular: Heart size upper limits of normal.. Mild aortic atherosclerotic calcification present Pleura: No pleural fluid. No pneumothorax. Other findings: None. ABDOMEN AND PELVIS: Bowel: Unremarkable bowel gas pattern. No evidence of mechanical obstruction. Free air: None. Bones: Mild multilevel degenerative spondylosis of the thoracic and lumbar spines le. Other findings: None. IMPRESSION: Questionable chronic interstitial changes versus interstitial infiltrates right and to a lesser degree left upper lung jacques.. Unremarkable radiographs of abdomen. No evidence of mechanical bowel obstruction.
--- NOTE | 2018-01-05 15:33 | C.PDOC ---
History Of Present Illness 62 y/o female, with PMHx of stage 4 lung cancer (currently getting weekly chemo) brought to ER by daughters for evaluation of constipation for the last 2 weeks. Patient admits she typically has chronic constipation and takes magnesium citrate, but yesterday she she took a new laxative (Miralax) and since then she has been having a lot of diarrhea. Patient also complains of generalized weakness and nausea. She denies chest pain, SOB, fever, current abdominal pain, dysuria/hematuria. PMD Dr. Laird Hem/Onc Dr. Fabrice Ibrahim Time Seen by Provider: 01/05/18 13:42 Chief Complaint (Nursing): Abdominal Pain History Per: Patient History/Exam Limitations: no limitations Onset/Duration Of Symptoms: Days Current Symptoms Are (Timing): Better Severity: Mild Associated Symptoms: Nausea, Diarrhea, Constipation (now resolved). denies: Fever, Chills, Vomiting, Urinary Symptoms Past Medical History Reviewed: Historical Data, Nursing Documentation, Vital Signs Vital Signs: Last Vital Signs Temp 97.9 F 01/05/18 13:27 Pulse 80 01/05/18 13:27 Resp 22 01/05/18 13:27 BP 91/64 L 01/05/18 13:27 Pulse Ox 99 01/05/18 13:27 - Medical History PMH: Anxiety, Asthma, HTN, Malignancy (stage 4 lung ca) Surgical History: Back Surgery - [facility] Procedures CLOSED ENDOSCOPIC BIOPSY OF LUNG (08/05/12) DESTROY LOC LUNG LES NEC (09/15/12) EXCISION OF STOMACH, ENDO, DIAGN (11/09/17) FIBER-OPTIC BRONCHOSCOPY (09/15/12) INSERT INTERCOSTAL CATH (09/15/12) LYMPHATIC STRUCT BIOPSY (09/15/12) Family History: States: No Known Family Hx - Social History Hx Alcohol Use: No Hx Substance Use: No - Immunization History Hx Tetanus Toxoid Vaccination: No Hx Influenza Vaccination: No Hx Pneumococcal Vaccination: No Review Of Systems Constitutional: Positive for: Weakness (generalized ) Cardiovascular: Negative for: Chest Pain, Palpitations Respiratory: Negative for: Cough, Shortness of Breath Gastrointestinal: Positive for: Nausea, Diarrhea, Constipation. Negative for: Vomiting, Abdominal Pain, Hematochezia, Hematemesis Genitourinary: Negative for: Dysuria, Hematuria Neurological: Negative for: Headache, Dizziness Physical Exam - Physical Exam Appears: Well, Non-toxic, No Acute Distress, Chronically Ill Skin: Normal Color, Warm, Dry Eye(s): bilateral: Normal Inspection Oral Mucosa: Moist Chest: Other (portacath right upper chest ) Cardiovascular: Rhythm Regular, No Murmur Respiratory: No Accessory Muscle Use, No Rales, No Rhonchi, Wheezing (expiratory wheezing bilaterally) Gastrointestinal/Abdominal: Normal Exam, Bowel Sounds, Soft, No Tenderness, Other (obese) Extremity: Tenderness Extremity: Bilateral: Atraumatic, Normal ROM Neurological/Psych: Oriented x3, Normal Speech, Normal Cognition Gait: Steady ED Course And Treatment - Laboratory Results Result Diagrams: 01/05/18 16:38 01/05/18 16:38 O2 Sat by Pulse Oximetry: 99 (RA) Pulse Ox Interpretation: Normal Progress Note: Bloodwork, UA, obstructive series ordered and reviewed. Patient given IV solumedrol, albuterol neb treatments. - Physician Consult Information Physician Contacted: Fabrice Ibrahim Outcome Of Conversation: Discussed patient with her oncologist, recommends CT scan chest/abd/pelvis with IV contrast. If patient feeling well, can bve discharged home with follow up in the office this week. Disposition - Disposition Disposition Time: 19:00 Condition: STABLE Forms: [facility] (Nicaraguan) - Clinical Impression Clinical Impression: Asthma exacerbation, Diarrhea, Lung cancer - Scribe Statement The provider has reviewed the documentation as recorded by the Asia Yates Provider Attestation: All medical record entries made by the Guilleibmanju were at my direction and personally dictated by me. I have reviewed the chart and agree that the record accurately reflects my personal performance of the history, physical exam, medical decision making, and the department course for this patient. I have also personally directed, reviewed, and agree with the discharge instructions and disposition. Physician Patient Turnover Patient Signed Over To: Erik Mcgraw Handoff Comments: pending ct scan, reassessment
[2018-01-05] MEDS ORDERED: Fluorescein 1 mg Ophthalmic Strip ONE (15:47)
[2018-01-05] MEDS ORDERED: Tetracaine 0.5% Ophth (OR ONLY) ONE (15:47)
[2018-01-05 16:47] LABS: BASO % 1.1 % (0.0-2.0); EOS # 0.1 K/uL (0.0-0.7); EOS % 1.5 % (0.0-4.0); HEMOGLOBIN 9.4 g/dL (11.0-16.0); LYMPH # 1.2 K/uL (1.0-4.3); LYMPH % 26.1 % (20.0-40.0); MEAN CELL VOLUME 79.7 fL (81.0-99.0); MEAN CORPUSCULAR HEMOGLOBIN 25.4 pg (27.0-31.0); MEAN CORPUSCULAR HGB CONC 31.9 g/dL (33.0-37.0); MEAN PLATELET VOLUME 9.8 fL (7.2-11.7); MONO # 0.2 K/uL (0.0-0.8); MONO % 3.7 % (0.0-10.0); NEUT % 67.6 % (50.0-75.0); NRBC % 0.1 % (0.0-2.0); RBC 3.69 Mil/uL (3.80-5.20); RED CELL DISTRIBUTION WIDTH 20.5 % (11.5-14.5); WHITE BLOOD COUNT 4.4 K/uL (4.8-10.8)
[2018-01-05] MEDS ORDERED: Sodium Chloride 0.9% 500 ML IV ONE (16:50)
[2018-01-05 17:01] LABS: ALB/GLOB RATIO 1.1 (1.0-2.1); ALBUMIN 3.2 g/dL (3.5-5.0); ALT/SGPT 23 U/L (9-52); AST/SGOT 31 U/L (14-36); BLOOD UREA NITROGEN 12 mg/dL (7-17); CALCIUM 8.3 mg/dl (8.6-10.4); GFR NON-AFRICAN AMERICAN > 60; LIPASE 36 U/L (23-300)
[2018-01-05] MEDS ORDERED: Albuterol-Ipratrop 3 mg / 0.5 (3 ml) UD ONE (17:21)
[2018-01-05] MEDS ORDERED: Albuterol 0.083% Inhal Sol (2.5 mg/3 mL) UD ONE (17:22)
[2018-01-05] MEDS ORDERED: MethylPREDNISolone 40 mg Vial ONE (17:22)
[2018-01-05] MEDS ORDERED: Iodixanol 320 MG/ML 100 ML BOTTLE IV ONE (18:39)
[2018-01-05 19:21] VITALS: PULSE 89
[2018-01-05 20:21] VITALS: BP 92/60; RESP 20; TEMP 98.8; O2SAT 97
--- NOTE | 2018-01-06 12:07 | CT ---
Date of service: 2018-01-05 18:49:56 CT chest, abdomen, and pelvis with IV contrast Indication: EVAL FOR WORSENING MALGNANCY Technique: Contiguous axial images of the chest, abdomen, and pelvis. Coronal and Sagittal reformats generated and reviewed. This CT exam was performed using 1 or more of the following dose reduction techniques: Automated exposure control, adjustment of the MAA and/or kV according to patient size, and/or use of iterative reconstruction technique. Contrast: 100 mL Visipaque IV Radiation dose: Total exam DLP = 1082.53 MGy-cm. Comparison: CT abdomen and pelvis without contrast performed 11/08/17, obstructive series performed 01/05/18 Findings: Visualized portions of the inferior thyroid gland appear unremarkable. The mediastinal and hilar vascular structures appear within normal limits. The heart appears within normal limits of size. Atherosclerotic calcifications of the aorta present. Extensive emphysematous changes. Irregular left apical pleural thickening. Scarring and bullous changes evident bilaterally. 2.8 x 4.4 cm left perihilar/suprahilar ill-defined parenchymal opacity, indeterminate (neoplasm is considered. Stellate right mid lung opacity measuring approximately 0.7 cm, also worrisome. Hypoattenuation of the liver compatible with hepatic steatosis. Gallbladder distension without calcified gallstones. Mild bilateral adrenal gland hypertrophy. 3.3 cm right renal cyst. Too small to characterize left renal hypodensities; statistically likely cysts. 6 mm splenic hypodensity, too small to characterize. The stomach is nondistended. The bowel loops appear within normal limits of caliber without evidence of intestinal obstruction. Diverticulosis without CT evidence of acute diverticulitis. There is no definite free air. Uterus is absent consistent with hysterectomy. Cervical prominence and 2 calcifications/radiopaque foci re-identified. Urinary bladder appears distended, otherwise unremarkable. Osseous demineralization. Multilevel degenerative changes. Approximately 9 mm anterolisthesis of L4 on L5. Marked scoliosis of the lumbar spine convex to the right. Impression: Extensive emphysematous changes. Irregular left apical pleural thickening. Scarring and bullous changes evident bilaterally. 2.8 x 4.4 cm left perihilar/suprahilar ill-defined parenchymal opacity, indeterminate (neoplasm is considered and must be excluded). Stellate right mid lung opacity measuring approximately 0.7 cm, also worrisome. Correlate clinically. Gallbladder distension without calcified gallstones. Further evaluation with right upper quadrant ultrasound may be considered if indicated. 3.3 cm probable right renal cyst. Too small to characterize left renal hypodensities; statistically likely cysts. Hypoattenuation of the liver compatible with hepatic steatosis. Too small to characterize 6 mm splenic hypodensity. Cervical prominence and 2 calcifications/radiopaque foci re-identified. Hysterectomy. Additional findings as above. Preliminary impression was provided by Gini. Study marked for PA review.
== END 2018-01-05 20:21 | disposition home or self-care (01) ==
LOC: C.ER 13:21
DX: R19.7 Diarrhea, unspecified (principal); J45.901 Unspecified asthma with (acute) exacerbation; C34.90 Malignant neoplasm of unspecified part of unspecified bronchus or lung
CPT/HCPCS: 71260; 74022; 74177; 80053; 83690; 85025; 94640; 96361; 96374; 99285; J2920; J7040; Q9967